=== PATIENT | female | born 1960 | race Caucasian/White ===

== ENCOUNTER → 2017-04-11 | Outpatient (CLI) | payer OTHER | END | disposition home or self-care (01) | LOC: C.PAPS 14:19 | PROVIDERS: ATTEND Obstetrics & Gynecology | DX: Z01.419 Encounter for gynecological examination (general) (routine) without abnormal findings (principal) ==

== ENCOUNTER → 2017-04-19 | Outpatient (CLI) | payer OTHER ==
--- NOTE | 2017-04-20 12:53 | MAMMOGRAPHY REPORT ---
BILATERAL DIGITAL SCREENING MAMMOGRAM TOMOSYNTHESIS WITH CAD: 04/19/2017 CLINICAL HISTORY: Routine screening. Patient has no complaints. TECHNIQUE: Breast tomosynthesis in addition to standard 2D mammography was performed. Current study was also evaluated with a Computer Aided Detection (CAD) system. COMPARISON: Comparison is made to exams dated: 08/03/2015 mammogram, 08/15/2013 mammogram, 01/02/2012 ma mmogram - [facility], 08/31/2009, and 04/30/2007. BREAST COMPOSITION: There are scattered areas of fibroglandular density in both breasts. FINDINGS: There is an ovoid 10 mm asymmetry seen within the right breast along the posterior nipple line on the cc view, best seen on the tomosynthesis images, which was not clearly evident on prior exams. Recommend spot compression tomosynthesis views and possible breast ultrasound for further ev aluation. The remainder of both breasts is stable compared to prior exams, without suspicious masses, calcific ations, or areas of architectural distortion noted. IMPRESSION: ACR BI-RADS CATEGORY 0: INCOMPLETE EVALUATION: NEED ADDITIONAL IMAGING EVALUATION Right breast asymmetry, for which additional imaging evaluation is recommended. The patient will be called to schedule an appointment. Approximately 10% of breast cancers are not detected with mammography. A negative mammographic repor t should not delay biopsy if a clinically suggestive mass is present. Zenaida Quiros M.D. /:04/19/2017 16:39:58 Computer Customer Support Specialist: Estefani ZHENG)(Eldon), [facility] letter sent: Addl Imaging 0 BI-RADS Code: ACR BI-RADS Category 0: Incomplete Evaluation: Need Additional Imaging Evaluation
== END | disposition home or self-care (01) ==
LOC: C.MAMM 08:47
PROVIDERS: ATTEND Obstetrics & Gynecology
DX: Z12.31 Encounter for screening mammogram for malignant neoplasm of breast (principal); R92.2 Inconclusive mammogram

== ENCOUNTER → 2017-05-01 | Outpatient (CLI) | payer OTHER ==
--- NOTE | 2017-05-01 16:17 | MAMMOGRAPHY REPORT ---
UNILATERAL RIGHT DIGITAL DIAGNOSTIC MAMMOGRAM TOMOSYNTHESIS AND TARGETED RIGHT ULTRASOUND: 05/01/2017 CLINICAL HISTORY: 56-year-old woman called back from screening mammography for an ovoid 10 mm asymmet ry in the right breast, along the posterior nipple line on the CC view. The patient reported a prior ultrasound at [facility], but no prior ultrasounds are available in PACS or in the patient's [facility] folder. TECHNIQUE: Spot compression right CC and MLO tomosynthesis images were obtained. COMPARISON: Comparison is made to exams dated: 04/19/2017 mammogram, 08/03/2015 mammogram, 08/15/2013 ma mmogram, 01/02/2012 mammogram - [facility], 08/31/2009, and 04/30/2007. BREAST COMPOSITION: The tissue of the right breast is heterogeneously dense, which may obscure small masses. FINDINGS: The 10 mm ovoid asymmetry is less conspicuous on the spot compression right CC tomosynthes is images. However, there is a possible circumscribed border in the superior middle one third of the right breast on the spot compression on MLO view, suggesting the asymmetry is located superior. Add itional evaluation with ultrasound was performed. No focal area of architectural distortion or suspi cious calcifications are seen. Targeted ultrasound was performed in the 11:00 through 1:00, retroareolar and 5:00 to 7:00 axis of th e right breast. In the 12:00 axis, 2 cm from the nipple, there is a circumscribed parallel hypoechoi c solid-appearing mass measuring 4.9 x 4.0 x 6.3 mm. This may possibly correlate with the original m ammographic asymmetry as the radial plane measurements may be slightly underestimated. Given the benita id nature, definitive characterization with an ultrasound-guided core needle biopsy is recommended, a s no prior exams are available to document stability. A second thin oval parallel horizontal solid-a ppearing mass is identified in the 12:30 right breast, 3 cm from the nipple, measuring 6.7 x 2.0 x 5. 1 mm. This is thought to be incidentally identified. IMPRESSION: ACR BI-RADS CATEGORY 4: SUSPICIOUS, TARGETED ULTRASOUND ACR BI-RADS CATEGORY 4: SUSPICIO US 1. Ultrasound-guided core needle biopsy is recommended for a solid circumscribed hypoechoic mass in the 12:00 right breast, thought to correlate with the mammographic asymmetry. 2. Pending benign pathology results, would recommend repeat targeted ultrasound in the 12:30 right b reast to ensure stability of another smaller benign-appearing circumscribed mass seen on ultrasound. These results and recommendations were discussed with the patient at the time of the exam. She tenta tively scheduled the right breast biopsy prior to leaving our department. Approximately 10% of breast cancers are not detected with mammography. A negative mammographic report should not delay biopsy if a clinically suggestive mass is present. Noelle Mcnamara M.D. ay/:05/01/2017 12:46:11 Clinical Psychologist Licensed: Cesilia ZHENG)(Eldon), [facility] letter sent: Abnormal 4/5 BI-RADS Code: ACR BI-RADS Category 4: Suspicious Ultrasound BI-RADS: ACR BI-RADS Category 4: Suspici ous
== END | disposition home or self-care (01) ==
LOC: C.MAMM 08:50
PROVIDERS: ATTEND Obstetrics & Gynecology
DX: N64.89 Other specified disorders of breast (principal); R92.8 Other abnormal and inconclusive findings on diagnostic imaging of breast

== ENCOUNTER → 2017-05-04 | Outpatient (CLI) | payer OTHER ==
--- NOTE | 2017-05-04 08:58 | Discharge Instructions ---
Discharge Instructions Procedure Procedure Date: May 04, 2017. Reason for visit: Right Mass. Discharge Discharge Date: May 04, 2017. Discharge Diagnosis: status post breast biopsy Instructions Activity Recommendations: Additional Limitations (see below) Return to School/Work: no limitations Recommended Home Diet: No Limitations Provider Instructions: ACTIVITY RECOMMENDATIONS: * No lifting, pushing, pulling or exercising the affected side for three days. RETURN TO SCHOOL/WORK: * You may return to work/school after the procedure, but do not perform any strenuous activities for 24 to 48 hours. MEDICATIONS: * Tylenol (two 325 mg) every four to six hours if needed for mild pain (if not allergic to Tylenol). DIET: * Resume previous diet. SPECIAL CARE INSTRUCTIONS: * Keep biopsy site dry for 24 hours. May shower after 24 hours, but do not soak (bathe) incision. * May remove Tegaderm (plastic patch) tomorrow AFTER showering. * Leave the steri-strips on for one week. Allow the steri-strips to fall off by themselves. If not off after one week, you may remove them. You may place a Bandaid crosswise over the strips, if desired. * Apply ice 10 minutes on and 10 minutes off as needed. * Wear a bra at bedtime to sleep more comfortably for 2-3 days. * Your referring physician should have the results after approximately 5 to 7 business days. * Call for unusual bleeding, fever, drainage, etc or if you have any questions call during normal business hours or after hours call Dr Quiros, [phone]. FOLLOW UP VISIT: Follow-up with Referring Physician as scheduled. Marilynn Roach Recommendations: Call your doctor if: * Temperature above 101 degrees * Pain not relieved by pain medicine ordered * There is increased drainage or redness from any incision * You have any unanswered questions or concerns. Your Doctors Instructions noted above were prepared by provider Zenaida Quiros. Patient Signature Section: Patient Instructions Signature Page Aylin Wijamison Patient (or Guardian) Signature/Date: I have read and understand the instructions given to me by my caregivers. Caregiver/RN/Doctor Signature/Date: The above-named patient and/or guardian has received patient instructions on this date. + Original Patient Signature Page (only) stays with chart. Please make copy for patient.
--- NOTE | 2017-05-04 13:55 | MAMMOGRAPHY REPORT ---
UNILATERAL RIGHT DIGITAL DIAGNOSTIC MAMMOGRAM TOMOSYNTHESIS: 05/04/2017 CLINICAL HISTORY: Status post ultrasound guided biopsy of the right 12:00 breast mass. TECHNIQUE: Breast tomosynthesis in addition to standard 2D mammography was performed. Postprocedura l right CC and ML tomosynthesis images including C views were obtained. COMPARISON: Comparison is made to exams dated: 05/01/2017 mammogram, 04/19/2017 mammogram, 08/03/2015 [place] mogram, 08/15/2013 mammogram, and 01/02/2012 mammogram - [facility]. BREAST COMPOSITION: The tissue of the right breast is heterogeneously dense, which may obscure small masses. FINDINGS: A new biopsy marker clip is seen at the site of the biopsied mass in the right 12:00 breas t. A biopsy marker clip is located at the site of the original mammographic mass, indicating good co rrelation between the biopsied sonographic mass and the mammographic mass. No significant postbiopsy hematoma is seen. IMPRESSION: POST PROCEDURE IMAGING FOR MARKER PLACEMENT New biopsy marker clip status post ultrasound guided biopsy of the right 12:00 breast mass. Patholog y results are pending. Pending benign pathology results, recommend follow-up ultrasound in 6 months to reevaluate the other benign appearing mass seen within the right 12:30 breast. Approximately 10% of breast cancers are not detected with mammography. A negative mammographic report should not delay biopsy if a clinically suggestive mass is present. Zenaida Quiros M.D. ah/:05/04/2017 09:11:15 Partition Making Machine Operator: Cesilia ZHENG)(Eldon), [facility] BI-RADS Code: Post Procedure Imaging For Marker Placement
--- NOTE | 2017-05-04 13:55 | MAMMOGRAPHY REPORT ---
THIS REPORT HAS BEEN AMENDED. ULTRASOUND GUIDED BIOPSY RIGHT BREAST: 05/04/2017 CLINICAL HISTORY: Right 12:00 breast mass. PATIENT CONSENT: The procedure, risks and benefits were discussed with the patient and informed writt en consent was obtained. A timeout was performed immediately prior to the procedure. PROCEDURE DESCRIPTION: With ultrasound guidance, aseptic technique, and lidocaine as the local anesth etic (1% lidocaine to anesthetize the skin and 1% lidocaine with epinephrine to anesthetize the deepe r tissues), the mass of concern in the right 12:00 breast was sampled 4 times with a 14-gauge achieve biopsy needle. Immediately thereafter, with ultrasound guidance, aseptic technique, and lidocaine a s the local anesthetic, a metallic localizer clip was placed centrally in the mass. Direct pressure was applied to the site immediately post procedure and hemostasis was achieved. Postprocedure unilat eral mammograms were performed to confirm placement of the clip in the expected location of the breas t mass. The patient tolerated the procedure without complication. She was given wound care instruct ions. The specimens were sent to pathology for analysis. COMPARISON: Comparison is made to exams dated: 05/01/2017 mammogram, 05/01/2017 ultrasound, 04/19/2017 ma mmogram, 08/03/2015 mammogram, 08/15/2013 mammogram, and 01/02/2012 mammogram - [facility]. IMPRESSION: ULTRASOUND GUIDED BIOPSY Ultrasound guided core needle biopsy of the right 12:00 breast mass, with clip placement. The patien t will receive pathology results from her referring provider. Pending benign pathology results, arnaud mmend repeat ultrasound in the right 12:30 breast in 6 months to ensure stability of the other mass s een during the diagnostic workup. Zenaida Quiros M.D. ah/:05/04/2017 09:00:31 Network Operations Manager: Cesilia ZHENG)(Eldon), [facility] AMENDMENT: 05/09/2017 Zenaida Quiros M.D. Pathology results from ultrasound guided biopsy of the right 12:00 breast mass was reviewed on 017. The pathology showed a fibroadenoma, which is concordant with the imaging findings. As recomme nded on the diagnostic mammogram report, recommend follow-up ultrasound in the right 12:30 breast to ensure stability of another smaller benign-appearing circumscribed mass seen on ultrasound.
== END | disposition home or self-care (01) ==
LOC: C.MAMM 08:22
PROVIDERS: ATTEND Obstetrics & Gynecology
DX: D24.1 Benign neoplasm of right breast (principal)